=== PATIENT | female | born 1945 | race Caucasian/White ===

== ENCOUNTER → 2017-10-13 | Outpatient (CLI) | payer MEDICARE ==
[~2017-10-13] MED LIST: REGADENOSON 0.4 MG/5 ML DISP.SYRIN. IV ONE
--- NOTE | 2017-10-13 13:21 | PCVCIMAG ---
APPROVED REPORT Study performed: 10/13/2017 11:09:46 EXAM: Comprehensive 2D, Doppler, and color-flow Echocardiogram Patient Location: Echo lab Room #: 2Status: routine BSA: 1.47 HR: 66 bpmBP: 112/70 mmHg Rhythm: NSR Other Information Study Quality: Good Risk Factors: Cardiac Risk Factors: HTN, Hyperlipidemia, PVCs, Indications Pre-Op Palpitations Hypertension/HDD 2D Dimensions LVEF(%): 70.63 (>50%) IVSd: 6.87 (7-11mm)LVOT Diam: 18.34 (18-24mm) LVDd: 38.38 mm PWd: 5.93 (7-11mm) LVDs: 23.25 (25-40mm) Left Atrium: 25.54 (27-40mm) Aortic Root: 26.18 mm LV Single Plane 4CH: 67.25 % LV Single Plane 2CH: 71.73 %Henson's LVEF: 69.49 % Biplane EF: 70.5 % Volumes Left Atrial Volume (Systole) Single Plane 4CH: 18.93 mLSingle Plane 2CH: 17.07 mL Biplane LA Volume: 18.00 mLLA ESV Index: 12.00 mL/m2 Aortic Valve AoV Peak Cristhian.: 1.50 m/s AO Peak Gr.: 9.00 mmHgLVOT Max P.28 mmHg LVOT Max V: 1.03 m/s VERNON Vmax: 1.82 cm2 AI Vmax: 3.78 m/s AI [place]: 2.21 m/s2 AI PHT: 495.35 ms Mitral Valve E/A Ratio: 0.9 MV Decel. Time: 192.19 ms MV E Max Cristhian.: 0.73 m/s MV A Cristhian.: 0.79 m/s TDI E/Lateral E': 14.60E/Medial E': 9.13 Medial E' Cristhian.: 0.08 m/s Lateral E' Cristhian.: 0.05 m/s Pulmonary Vein P Vein S: 0.59 m/sP Vein A: 0.27 m/s P Vein D: 0.41 m/sP Vein A Dur.: 86.5 msec P Vein S/D Ratio: 1.44 Tricuspid Valve TR Peak Cristhian.: 2.08 m/s TR Peak Gr.: 17.32 mmHg TV Vmax: 0.53 m/sPA Pressure: 24.00 mmHg Left Ventricle The left ventricle is normal size. There is normal LV segmental wall motion. There is normal left ventricular wall thickness. Left ventricular systolic function is normal. The left ventricular ejection fraction is within the normal range. LVEF is 65-70%. Grade II - pseudonormal filling dynamics. Right Ventricle The right ventricle is normal size. The right ventricular systolic function is normal. Atria The left atrium size is normal. The right atrium size is normal. Aortic Valve Aortic valve is trileaflet. Aortic valve leaflets are mildly sclerotic with normal leaflet excursion. Mild aortic regurgitation. There is no aortic valvular stenosis. Mitral Valve The mitral valve is normal in structure. There is no mitral valve regurgitation noted. No evidence of mitral valve stenosis. Tricuspid Valve The tricuspid valve is normal in structure. Trace tricuspid regurgitation. No pulmonary hypertension. Pulmonic Valve The pulmonary valve is normal in structure. There is no pulmonic valvular regurgitation. Great Vessels The aortic root is normal in size. The ascending aorta is normal in size. IVC is normal in size and collapses with >50% inspiration Pericardium There is no pericardial effusion. There is no pleural effusion. <Conclusion> The left ventricle is normal size. Left ventricular systolic function is normal. The right ventricle is normal size. The left atrium size is normal. Mild aortic regurgitation. The mitral valve is normal in structure. Trace tricuspid regurgitation.
--- NOTE | 2017-10-14 08:59 | PCVCIMAG ---
APPROVED REPORT Exam: Nuclear Stress Test Indication: Abnormal EKG, Dyspnea Patient Location: Out-Patient Stress Nurse: Amrita Richard RN NC Tech:[facility] [place] Ht: 4 ft 10 in Wt: 121 lbs BSA: 1.47 m2 HR: 65 bpm BP: 125/61 mmHg BMI: 25.2 Rhythm: NSR Medical History Medical History: AGE, HYPERLIPIDEMIA, HTN Medications: Atorvastatin, Lisinopril, Maxide Allergies: BACTRIM, CODEINE Pretest Chest Pain Characteristics: No chest pain Exercise History: Physically active Stress Test Details Stress Test: Pharmacologic stress was paired with low level exercise. Reason for pharmacologic stress test: physical limitation. HR Resting HR: 65 bpmMax Heart Rate (APMHR): 146 bpm Max HR Achieved: 107 bpmTarget HR (85% APMHR): 124 bpm % of APMHR: 73 Recovery HR: 82 bpm BP Resting BP: 125/61 mmHg Max BP: 124/68 mmHg ECG Resting ECG: Sinus Rhythm Stress ECG: Sinus Tachycardia ST Change: Non-ischemic Arrhythmia: None Recovery ECG: Sinus Rhythm Clinical Reason for Termination: Completed protocol Stress Symptoms: Leg Fatigue Exercise duration: 4 min 00 sec Exercise capacity: 1.6 METs Overall Exercise Capacity for Age: Normal Symptoms resolved during recovery. NC EXAM: Myocardial Perfusion REST/STRESS Imaging Protocol: Rest Tc-99m/Stress Tc-99m 1 day Resting Data Rest SPECT myocardial perfusion imaging was performed in supine position 45 minutes following the intravenous injection of 11.0 mCi of Tc-99m Sestamibi. Time of rest injection: 1220 Date: 10/13/2017 Administration Route: IV Administration Site: Right AC Pharmacologic Stress Pharmacologic stress test was performed by injecting Regadenoson 0.4 mg IV push followed by the intravenous injection of 34.9 mCi of Tc-99m Sestamibi. Time of stress injection: 1330 Date: 10/13/2017 Administration Route: IV Administration Site: Right AC The images were gated to evaluate regional wall motion and calculate left ventricular ejection fraction. Study Quality Study: Good Artifact: Mild Breast artifact Study Data Post stress, the left ventricular ejection was 83%.. SSS: 3 SRS: 0 SDS: 3 TID = 1.04. Perfusion There is a medium area of mildly reduced uptake in the mid segment of the anterior wall which is seen on the stress images as well as the resting images. This area thickens and moves normally and is most consistent with attenuation artifact. Wall Motion Normal left ventricular wall motion. Nuclear Conclusion ECG Findings: negative for ischemia Clinical Findings: non-diagnostic Nuclear Findings: negative for ischemia This study is of low probability for inducible ischemia or prior infarct. Normal global and segmental LV systolic function. Artifact: Mild Breast artifact
== END | disposition home or self-care (01) ==
LOC: PCVCIMAG 11:17
PROVIDERS: ATTEND Internal Medicine Cardiovascular Disease
DX: I35.1 Nonrheumatic aortic (valve) insufficiency (principal); I10 Essential (primary) hypertension; R00.2 Palpitations; I49.3 Ventricular premature depolarization; R06.09 Other forms of dyspnea; E78.5 Hyperlipidemia, unspecified; R94.31 Abnormal electrocardiogram [ECG] [EKG]
CPT/HCPCS: 78452; 93017; 93306; A9500; J2785